=== PATIENT | male | born 1990 | race Caucasian/White ===

== ENCOUNTER 2018-09-24 16:05 | Outpatient (REF) | payer BC, SELFPAY ==
[2018-09-24 19:17] LABS: Abs Immature Grans 0.01 k/cumm (0.0-0.09); Absolute Basophil Count 0.03 k/cumm (0.0-0.2); Absolute Eosinophil Count 0.01 k/cumm (0.0-0.7); Absolute Lymphocyte Count 1.76 k/cumm (1.2-3.4); Absolute Monocyte Count 0.55 k/cumm (0.11-0.7); Basophils % 0.4; Eosinophils % 0.1; HGB 15.4 g/dL (13.5-17.5); Immature Grans % 0.1; Lymphocytes % 23.9; Mean Corp. HGB Concentration 34.2 g/dL (32.0-36.0); Mean Corpuscular Hemoglobin 30.1 pg (27.0-33.0); Mean Corpuscular Volume 87.9 fL (80-95); Mean Platelet Volume 9.8 fL (8.0-11.0); Monocytes % 7.5; Platelet Count 294 x1000/uL (130-400); RBC 5.12 m/cumm (4.50-6.00); RBC Distribution Width 12.6 % (11.8-14.1); White Blood Cell Count 7.36 k/cumm (4.4-10.8)
[2018-09-24 20:01] LABS: ALT 31 U/L (12-78); AST 20 U/L (15-37); Albumin 4.2 g/dL (3.4-5.0); Alkaline Phosphatase 74 U/L (46-116); Anion Gap 7.9 mmol/L (3-11); BUN 12 mg/dL (7-18); Bilirubin, Total 0.6 mg/dL (0.2-1.0); CO2 29.1 mmol/L (21.0-32.0); CREATININE 0.71 mg/dL (0.70-1.30); Calcium 9.6 mg/dL (8.5-10.1); Chloride 103 mmol/L (98-107); Glucose 116 mg/dL (70-100); HDL Cholesterol 68 mg/dL (40-60); LDL CHOLESTEROL 142 mg/dL (<100); Sodium 140 mmol/L (136-145); TSH 1.09 uIU/mL (0.358-3.74); Total Protein 7.8 g/dL (6.4-8.2)
[2018-09-24 20:06] LABS: ESR 10 MM/HR (0-15)
== END 2018-09-24 16:25 ==
LOC: NCHCN 16:05
PROVIDERS: PCP Nurse Practitioner Family; Visit Provider Nurse Practitioner Family
DX: E10.3513 Type 1 diabetes mellitus with proliferative diabetic retinopathy with macular edema, bilateral (principal); Z01.818 Encounter for other preprocedural examination
CPT/HCPCS: 80053; 83721; 85652; 83718; 84443; 85025

== ENCOUNTER 2019-07-19 12:41 | Outpatient (REF) | payer BC, SELFPAY ==
[2019-07-22 09:37] LABS: 2-Hydroxy Ethyl Flurazepam Not Detected ng/mL (Cutoff: 10); 6-monoacetylmorphine Not Detected ng/mL (Cutoff: 25); Alpha-Hydroxy Midazolam Not Detected ng/mL (Cutoff: 10); Alpha-Hydroxy Triazolam Not Detected ng/mL (Cutoff: 10); Alpha-Hydroxyalprazolam Not Detected ng/mL (Cutoff: 10); Alpha-OH-alprazolam Glucuronid Not Detected ng/mL (Cutoff: 50); Alprazolam Not Detected ng/mL (Cutoff: 10); Amphetamines Negative ng/mL (Cutoff: 500); Barbiturates Negative ng/mL (Cutoff: 200); Buprenorphine Not Detected ng/mL (Cutoff: 5); Chlordiazepoxide Not Detected ng/mL (Cutoff: 10); Clobazam Not Detected ng/mL (Cutoff: 10); Clonazepam Not Detected ng/mL (Cutoff: 10); Cocaine Negative ng/mL (Cutoff: 150); Codeine Not Detected ng/mL (Cutoff: 25); Comment Normal; Creatinine, U 40.2 mg/dL; Diazepam Not Detected ng/mL (Cutoff: 10); Dihydrocodeine Not Detected ng/mL (Cutoff: 25); EDDP Not Detected ng/mL (Cutoff: 25); Fentanyl Not Detected ng/mL (Cutoff: 2); Flurazepam Not Detected ng/mL (Cutoff: 10); Hydrocodone Not Detected ng/mL (Cutoff: 25); Hydromorphone Not Detected ng/mL (Cutoff: 25); Hydromorphone-3-beta-glucuroni Not Detected ng/mL (Cutoff: 100); Lorazepam Not Detected ng/mL (Cutoff: 10); Lorazepam Glucuronide Not Detected ng/mL (Cutoff: 50); Meperidine Not Detected ng/mL (Cutoff: 25); Methadone Not Detected ng/mL (Cutoff: 25); Midazolam Not Detected ng/mL (Cutoff: 10); Morphine Not Detected ng/mL (Cutoff: 25); N-Desmethylclobazam Not Detected ng/mL (Cutoff: 200); N-desmethyltapentadol Not Detected ng/mL (Cutoff: 50); Naloxone Not Detected ng/mL (Cutoff: 25); Norbuprenorphine Not Detected ng/mL (Cutoff: 5); Norfentanyl Not Detected ng/mL (Cutoff: 2); Norhydrocodone Not Detected ng/mL (Cutoff: 25); Normeperidine Not Detected ng/mL (Cutoff: 25); Noroxycodone Not Detected ng/mL (Cutoff: 25); Noroxymorphone Not Detected ng/mL (Cutoff: 25); O-desmethyltramadol Not Detected ng/mL (Cutoff: 25); Oxazepam Glucuronide Not Detected ng/mL (Cutoff: 50); Phencyclidine Negative ng/mL (Cutoff: 25); Prazepam Not Detected ng/mL (Cutoff: 10); Propoxyphene Not Detected ng/mL (Cutoff: 25); Specific Gravity 1.006; Tapentadol Not Detected ng/mL (Cutoff: 25); Temazepam Not Detected ng/mL (Cutoff: 10); Temazepam Glucuronide Not Detected ng/mL (Cutoff: 50); Tetrahydrocannabinol Presumptive Positive ng/mL (Cutoff: 50); Tramadol Not Detected ng/mL (Cutoff: 25); Triazolam Not Detected ng/mL (Cutoff: 10); Zolpidem Phenyl-4-Carboxy acid Not Detected ng/mL (Cutoff: 10); pH 7.6
[2019-07-22 12:03] LABS: Carboxy-THC Interpretation Positive.; Delta-9 CarboxyThc by LC-MS/MS 101 ng/mL (Cutoff:<3)
== END 2019-07-19 13:01 ==
LOC: LBN 12:41
PROVIDERS: PCP Nurse Practitioner Family; Visit Provider Nurse Practitioner Family
DX: Z79.899 Other long term (current) drug therapy (principal)
CPT/HCPCS: 80307; 80347; 80349; 80364

== ENCOUNTER 2020-10-09 15:08 | Outpatient (REF) | payer MEDICAID, SELFPAY ==
[2020-10-09 15:52] LABS: Hemoglobin A1C 8.2 % (<5.7)
[2020-10-09 16:10] LABS: COMMENT (LAB VIEW ONLY) 63.75 mg/dL; Microalb ug/mg Crea 16.3 ug/mg Cr
== END 2020-10-09 15:09 | disposition home or self-care (01) ==
LOC: NCHCN 15:08
PROVIDERS: PCP Nurse Practitioner Family; Visit Provider Physician Assistant
DX: E10.3293 Type 1 diabetes mellitus with mild nonproliferative diabetic retinopathy without macular edema, bilateral (principal)
CPT/HCPCS: 80053; 80061; 82043; 82570; 83036

== ENCOUNTER 2020-10-10 13:29 | Outpatient (REF) | payer MEDICAID, SELFPAY ==
[2020-10-10 14:30] LABS: ALT 33 U/L (16-63); AST 20 U/L (15-37); Albumin 4.4 g/dL (3.4-5.0); Alkaline Phosphatase 72 U/L (46-116); Anion Gap 7.6 mmol/L (3-11); BUN 13 mg/dL (7-18); Bilirubin, Total 0.4 mg/dL (0.2-1.0); CO2 30.4 mmol/L (21.0-32.0); CREATININE 0.8 mg/dL (0.70-1.30); Calcium 9.5 mg/dL (8.5-10.1); Calculated LDL 119 mg/dL (<100); Chloride 104 mmol/L (98-107); Cholesterol 198 mg/dL (<200); Glucose 52 mg/dL (74-106); HDL Cholesterol 55 mg/dL (40-60); Potassium 4.4 mmol/L (3.5-5.1); Sodium 142 mmol/L (136-145); Triglyceride 122 mg/dL (<150)
== END 2020-10-10 13:30 | disposition home or self-care (01) ==
LOC: NCHCN 13:29
PROVIDERS: PCP Nurse Practitioner Family; Visit Provider Physician Assistant
DX: E10.3293 Type 1 diabetes mellitus with mild nonproliferative diabetic retinopathy without macular edema, bilateral (principal)
CPT/HCPCS: 80053; 80061

== ENCOUNTER 2021-01-31 09:24 | Outpatient (REF) | payer MEDICAID, SELFPAY ==
[2021-02-04 13:51] LABS: 2-Hydroxy Ethyl Flurazepam Not Detected ng/mL (Cutoff: 10); 3,4-methylenedioxyamphetamine Not Detected ng/mL (Cutoff: 100); 3,4-methylenedioxyethylampheta Not Detected ng/mL (Cutoff: 100); 3,4-methylenedioxymethamphetam Not Detected ng/mL (Cutoff: 100); 6-monoacetylmorphine Not Detected ng/mL (Cutoff: 25); Alpha-Hydroxy Midazolam Not Detected ng/mL (Cutoff: 10); Alpha-Hydroxy Triazolam Not Detected ng/mL (Cutoff: 10); Alpha-Hydroxyalprazolam Not Detected ng/mL (Cutoff: 10); Alpha-OH-alprazolam Glucuronid Not Detected ng/mL (Cutoff: 50); Alprazolam Not Detected ng/mL (Cutoff: 10); Amphetamine Not Detected ng/mL (Cutoff: 100); Barbiturates Negative ng/mL (Cutoff: 200); Buprenorphine Not Detected ng/mL (Cutoff: 5); Chlordiazepoxide Not Detected ng/mL (Cutoff: 10); Clobazam Not Detected ng/mL (Cutoff: 10); Clonazepam Not Detected ng/mL (Cutoff: 10); Cocaine Negative ng/mL (Cutoff: 150); Codeine Not Detected ng/mL (Cutoff: 25); Comment Normal; Creatinine, U 105.2 mg/dL; Diazepam Not Detected ng/mL (Cutoff: 10); Dihydrocodeine Not Detected ng/mL (Cutoff: 25); EDDP Not Detected ng/mL (Cutoff: 25); Ephedrine Not Detected ng/mL (Cutoff: 100); Fentanyl Not Detected ng/mL (Cutoff: 2); Flurazepam Not Detected ng/mL (Cutoff: 10); Hydrocodone Not Detected ng/mL (Cutoff: 25); Hydromorphone Not Detected ng/mL (Cutoff: 25); Hydromorphone-3-beta-glucuroni Not Detected ng/mL (Cutoff: 100); Lorazepam Not Detected ng/mL (Cutoff: 10); Lorazepam Glucuronide Not Detected ng/mL (Cutoff: 50); Meperidine Not Detected ng/mL (Cutoff: 25); Methadone Not Detected ng/mL (Cutoff: 25); Methamphetamine Not Detected ng/mL (Cutoff:100); Methylphenidate Not Detected ng/mL (Cutoff: 20); Midazolam Not Detected ng/mL (Cutoff: 10); Morphine Not Detected ng/mL (Cutoff: 25); N-Desmethylclobazam Not Detected ng/mL (Cutoff: 200); N-desmethyltapentadol Not Detected ng/mL (Cutoff: 50); Naloxone Not Detected ng/mL (Cutoff: 25); Norbuprenorphine Not Detected ng/mL (Cutoff: 5); Norfentanyl Not Detected ng/mL (Cutoff: 2); Norhydrocodone Not Detected ng/mL (Cutoff: 25); Normeperidine Not Detected ng/mL (Cutoff: 25); Noroxycodone Not Detected ng/mL (Cutoff: 25); Noroxymorphone Not Detected ng/mL (Cutoff: 25); O-desmethyltramadol Not Detected ng/mL (Cutoff: 25); Oxazepam Glucuronide Not Detected ng/mL (Cutoff: 50); Phencyclidine (PCP) Not Detected ng/mL (Cutoff: 20); Phentermine Not Detected ng/mL (Cutoff: 100); Prazepam Not Detected ng/mL (Cutoff: 10); Propoxyphene Not Detected ng/mL (Cutoff: 25); Pseudoephedrine Not Detected ng/mL (Cutoff: 100); Ritalinic Acid Not Detected ng/mL (Cutoff: 100); Specific Gravity 1.011; Tapentadol Not Detected ng/mL (Cutoff: 25); Temazepam Not Detected ng/mL (Cutoff: 10); Temazepam Glucuronide Not Detected ng/mL (Cutoff: 50); Tetrahydrocannabinol Presumptive Positive ng/mL (Cutoff: 50); Tramadol Not Detected ng/mL (Cutoff: 25); Triazolam Not Detected ng/mL (Cutoff: 10); Zolpidem Phenyl-4-Carboxy acid Not Detected ng/mL (Cutoff: 10); pH 7.8
[2021-02-04 15:30] LABS: Carboxy-THC Interpretation Positive.; Delta-9 CarboxyThc by LC-MS/MS 181 ng/mL (Cutoff:<3)
== END 2021-01-31 09:25 | disposition home or self-care (01) ==
LOC: LBN 09:24
PROVIDERS: PCP Nurse Practitioner Family; Visit Provider Nurse Practitioner Family
DX: E10.42 Type 1 diabetes mellitus with diabetic polyneuropathy (principal); Z79.899 Other long term (current) drug therapy
CPT/HCPCS: 80307; 80347; 80349; 80364

== ENCOUNTER 2021-04-09 13:45 | Outpatient (REF) | payer MEDICAID, SELFPAY ==
[2021-04-09 14:20] LABS: Hemoglobin A1C 8.6 % (<5.7)
[2021-04-09 14:32] LABS: TSH 1.07 uIU/mL (0.36-3.74)
[2021-04-09 20:32] LABS: Calculated LDL 65 mg/dL (<100); Cholesterol 124 mg/dL (<200); HDL Cholesterol 49 mg/dL (40-60); Triglyceride 51 mg/dL (<150)
== END 2021-04-09 13:46 | disposition home or self-care (01) ==
LOC: NCHCN 13:45
PROVIDERS: PCP Nurse Practitioner Family; Visit Provider Physician Assistant
DX: E10.8 Type 1 diabetes mellitus with unspecified complications (principal); K31.84 Gastroparesis
CPT/HCPCS: 80061; 83036; 84439; 84443

== ENCOUNTER 2021-07-24 15:52 | Outpatient (REF) | payer MEDICAID, SELFPAY ==
[2021-07-24 19:25] LABS: COMMENT (LAB VIEW ONLY) 175.16 mg/dL; Microalb ug/mg Crea 48.1 ug/mg Cr
== END 2021-07-24 15:53 | disposition home or self-care (01) ==
LOC: NCHCN 15:52
PROVIDERS: PCP Nurse Practitioner Family; Visit Provider Physician Assistant
DX: E10.8 Type 1 diabetes mellitus with unspecified complications (principal)
CPT/HCPCS: 82043; 82570

== ENCOUNTER 2022-06-03 10:14 | Outpatient (REF) | payer MEDICAID, SELFPAY ==
[2022-06-03 15:44] LABS: Hemoglobin A1C 8.8 % (<5.7)
[2022-06-03 15:49] LABS: ALT 62 U/L (16-63); AST 36 U/L (15-37); Albumin 4.4 g/dL (3.4-5.0); Alkaline Phosphatase 70 U/L (46-116); Anion Gap 7.9 mmol/L (3-11); BUN 16 mg/dL (7-18); Bilirubin, Total 0.5 mg/dL (0.2-1.0); CO2 29.1 mmol/L (21.0-32.0); CREATININE 0.7 mg/dL (0.70-1.30); Calcium 9.3 mg/dL (8.5-10.1); Calculated LDL 138 mg/dL (<100); Chloride 103 mmol/L (98-107); Cholesterol 208 mg/dL (<200); Estimated GFR 127.12 (mL/min/1.73m2); Glucose 76 mg/dL (74-106); HDL Cholesterol 58 mg/dL (40-60); Potassium 4.3 mmol/L (3.5-5.1); Sodium 140 mmol/L (136-145); Total Protein 8.4 g/dL (6.4-8.2); Triglyceride 60 mg/dL (<150)
== END 2022-06-03 10:15 | disposition home or self-care (01) ==
LOC: NCHCN 10:14
PROVIDERS: PCP Nurse Practitioner Family; Visit Provider Physician Assistant
DX: E10.8 Type 1 diabetes mellitus with unspecified complications (principal)
CPT/HCPCS: 80053; 80061; 83036

== ENCOUNTER 2023-04-15 13:38 | Emergency (ER) | payer MEDICAID, SELFPAY ==
[2023-04-15] VITALS (12 sets, daily range): BP systolic 117–140; BP diastolic 74–90; PULSE 60–79; RESP 10–18; TEMP 36.8; O2SAT 99–100
--- NOTE | 2023-04-15 13:52 | ED.GENADUL_ITS ---
Discharge Plan Disposition Patient Disposition: Home Discharge Details Clinical Impression: Colitis Primary Care Provider: Laney Aragon ED Provider: Lorenzo Cleveland Home Meds and New Rx's Prescriptions: New amoxicillin-pot clavulanate 875-125 mg tablet 1 tab PO BID 7 Days Qty: 14 0RF famotidine 40 mg tablet 40 mg PO DAILY Qty: 30 0RF Continued Toujeo Max U-300 SoloStar 300 unit/mL (3 mL) insulin pen 28 unit SC QHS Patient Comments: no longer taking 04/15/23 atorvastatin 40 mg Tablet 40 mg PO QPM (DME) pen needle, diabetic [BD Ultra-Fine Sarah Pen Needle] 1 EACH needle 1 ea Miscellaneous as directed Qty: 100 Rx Instructions: dispense BD short pen needles insulin aspart U-100 [Novolog FlexPen U-100 Insulin] 100 UNIT/1 ML insulin pen 1 dose SQ .4X/DAY PRNQty: 1 0RF Rx Instructions: use for correction of elevated BG as directed Discharge Instructions Additional Instructions: You are seen in the emergency department for your abdominal pain. Your CAT scan shows that you have signs of inflammation in your stomach which is likely an infection for which you are being treated with antibiotics. If you cannot eat or drink or develop any nausea or vomiting please return to the emergency department. Discharge Data Discharge Date/Time-TO BE ENTERED AT DEPARTURE: 04/15/23 15:51 Medical Decision Making This is an overall very well-appearing normothermic and not tachycardic 32-year- old male with history of diabetes and lower abdominal pain and black stools concerning for the possibility of GI bleed. Patient is not an alcoholic so my suspicion for upper GI bleed is low. He is not anticoagulated. He has not been vomiting and he has no history of surgeries to suggest increased risk for SBO. He does have right lower quadrant tenderness which raises possibility of appendicitis. Based on his age my suspicion is low for diverticulitis. No dysuria no frequency to suggest UTI. No flank pain to suggest ureterolithiasis. No history of trauma to suggest intra-abdominal injury however the patient has been rock climbing so certainly is possible that he could have developed a musculoskeletal strain, though he has no physical signs of trauma. No pain out of proportion to suggest necrotizing soft tissue infection. Will reassess following labs including comprehensive metabolic panel and type and screen CT scan. No hypotension nor vascular risk factors beyond diabetes to suggest ruptured AAA. We will treat with 80 mg of pantoprazole and provide a 500 cc crystalloid bolus. 3:03 PM CBC with no anemia thrombocytopenia nor leukocytosis. Comprehensive metabolic panel with no SONIYA. Mild hyperglycemia but no anion gap and normal bicarbonate. Not consistent with DKA. No LFT abnormalities. Patient has a Glascow Blatchford bleeding score of 0 making him appropriate for discharge with outpatient follow-up assuming his CT does not show any acute abnormalities. 3:[address] scan concerning for colitis for which patient will receive amoxicillin clavulanic acid. Will discharge with outpatient follow-up. Patient felt markedly improved following pantoprazole. I wrote him for a short course of famotidine and advised outpatient follow-up. I also discussed return to the ED if he developed any worsening abdominal pain recurrent black or bloody stools or had any other concerns. 04/16 I called the patient at home to inquire as to how he was feeling. He reported that he had been tolerating liquids well and had had no recurrent episodes of black stools. He reported that he was going to collect his antibiotics this morning. He reported no fevers. I advised that he should continue to monitor his symptoms at home and return to the emergency department if he had any concerns. Chronic conditions affecting the care of the patient: Type 1 diabetic History obtained from an outside historian: N/A External record review: [facility] [place] Medications: Pantoprazole & amoxicillin clavulanic acid Social determinants of health affecting disposition: N/A Management discussed with: N/A Treatment/interventions considered: N/A Response to therapies provided: N/A HPI General Date/Time Provider Initiated Documentation: 04/15/23 13:52 . HPI Narrative: This is a 32-year-old insulin-dependent diabetic with lower abdominal pain and nausea. He describes his pain as crampy. His pain does not radiate. He denies any exacerbators alleviators. He reports that he had black stools this morning. He has a history of gastroparesis. 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 He has not had any fevers dysuria chest pain shortness of breath dysuria no frequency. He is not anticoagulated. He has never had any surgeries to his abdomen. He denies routine tobacco and ethanol. He does smoke marijuana. He has not had any blood in his stools. He has not been vomiting. He has had no headaches. Related Data Home Medications Medication Instructions Recorded Confirmed pen needle, diabetic 32 gauge x #100 ea 11/29/13 07/19/1930 (BD Ultra-Fine Sarah Pen Needle) insulin aspart U-100 100 unit/mL 1 dose SQ .4X/DAY PRN ##1 07/02/14 04/15/23 (3 mL) subcutaneous pen (Novolog FlexPen U-100 Insulin aspart) insulin glargine U-300 conc 300 28 unit subcut QHS 07/19/19 07/19/19 unit/mL (3 mL) subcutaneous pen (Toujeo Max U-300 SoloStar) atorvastatin 40 mg tablet 40 mg PO QPM 01/31/21 04/15/23 amoxicillin 875 mg-potassium 1 tab PO BID 7 days #14 tabs 04/15/23 clavulanate 125 mg tablet famotidine 40 mg tablet 40 mg PO DAILY #30 tabs 04/15/23 Previous Rx's Medication Instructions Recorded insulin aspart U-100 100 unit/mL 1 dose SQ .4X/DAY PRN ##1 07/02/14 (3 mL) subcutaneous pen (Novolog FlexPen U-100 Insulin aspart) amoxicillin 875 mg-potassium 1 tab PO BID 7 days #14 tabs 04/15/23 clavulanate 125 mg tablet famotidine 40 mg tablet 40 mg PO DAILY #30 tabs 04/15/23 Allergies Allergy/AdvReac Type Severity Reaction Status Date / Time No Known Allergies Allergy Unverified 04/15/23 13:47 General Stated Complaint: Abd Prob LAINEY: 3 PFSH All Active Problems (Updated 04/15/23 @ 15:43 by Lorenzo Cleveland MD) Colitis (Acute) Tendinitis of right wrist (Acute 11/23/12) Routine medical exam (Acute 04/01/13) Palpitations (Acute 11/23/12) Diabetes mellitus type 1 (Acute 11/23/12) DKA, type 1 (Acute 07/01/14) a. bicarb 13.4 b. clinically dehydrated c. obvious odor of ketones d. Diabetes diagnosed as an e. Multiple previous admissions for DKA, none in several years Medical History (Updated 04/15/23 @ 15:43 by Lorenzo Cleveland MD) Gastroparesis Neuropathy Retinal hemorrhage Situational depression Type 1 diabetes mellitus Vitreous hemorrhage, right eye Wrist tendonitis Surgical History (Updated 01/31/21 @ 08:51 by Danuta Connolly) H/O eye surgery x2 Social History (Updated 08/09/18 @ 09:03 by Amy Alan RN) Smoking/Tobacco Use Status: Former Tobacco Use Smoking risk assessment performed?: Yes Alcohol Intake: former Drug use: Occasionally Substance use type: marijuana Household members: family Housing: house What type of physical activity do you participate in: additional Details: PT every monrning Do you feel safe in your relationship?: Yes Exam Narrative Exam Narrative: General: Well-appearing in no acute distress speaking in complete sentences. Head: Normocephalic, atraumatic. Eye: Pupils equal, round reactive to light. Extraocular eye movements intact. No conjunctival injection. No scleral icterus. Ear, nose, mouth, throat: Grossly normal inspection. Normal voice, handling secretions normally. Neck: Trachea midline. Cardiovascular: Well-perfused distal extremities. Regular rate and rhythm Respiratory: Nonlabored respiration. Clear lungs Gastrointestinal: Nondistended abdomen. Soft abdomen with diffuse lower quadrant tenderness bilaterally. No rebound. No guarding. No rash to abdomen.No melena on rectal exam. Musculoskeletal: No edema. Moving all 4 extremities spontaneously. Skin: Normal for age and race, grossly normal temperature and turgor. No acute rash. Neurologic: Alert and appropriate, no apparent acute deficits. Psychiatric: Mood and manner are appropriate. Grooming and personal hygiene are appropriate. Course Vital Signs Vital signs: Vital Signs Temperature 36.8 C 04/15/23 13:45 Pulse 73 04/15/23 13:45 Respiratory Rate 18 04/15/23 13:45 Blood Pressure 123/90 04/15/23 13:45 Pulse Oximetry 99 04/15/23 13:45 Temperature 36.8 C 04/15/23 13:45 Temperature Source Skin 04/15/23 13:45 Pulse 73 04/15/23 13:45 Respiratory Rate 18 04/15/23 13:45 Blood Pressure 123/90 04/15/23 13:45 Pulse Oximetry 99 04/15/23 13:45 Oxygen Delivery Method Room Air 04/15/23 13:45 Oxygen Flow Rate 0 04/15/23 13:45 Pain Level 7 04/15/23 13:45
--- NOTE | 2023-04-15 14:00 | DI.CT_ITS ---
Exam(s) CT ABDOMEN PELVIS W EXAM: CT ABDOMEN PELVIS W CLINICAL HISTORY: Lower abdominal pain black stools. TECHNIQUE: Imaging Protocol: Axial computed tomography images with coronal and sagittal reformatted images were created and reviewed CONTRAST MATERIAL: Intravenous: Omnipaque 350 Contrast volume:100 ml Oral: / no COMPARISON: CT HEAD FACIALS WO from 06/11/2010 FINDINGS: ABDOMEN: Lung Bases: Normal where visualized. Liver: Normal density. No measurable mass. Gallbladder and biliary tract: No radiodense calculus or dilation. Pancreas: Normal density, no abnormal calcifications or inflammatory process. Spleen: Normal. Kidneys: Normal size, contour and axis. No radiodense stones or obstructive uropathy. No suspicious m asses seen. Adrenal glands: No masses seen. Abdominal Aorta: Abdominal portion non-dilated. Soft tissues: Unremarkable. PELVIS: Bladder: No gross wall thickening. No calculi.No focal mass. Bowel: No obstruction. Colon nearly empty of stool. Thickening of wall and mild surrounding edema of descending and sigmoid, consistent with colitis. Appendix normal. Peritoneal cavity: No ascites, collection or mesenteric inflammatory response. Bones: Unremarkable for age. Reproductive organs: Within normal limits. Lymph nodes: Unremarkable. Impression: Wall thickening of descending and sigmoid colon consistent with colitis. These called to Gloria Louis of the emergency department. RADIATION DOSE DELIVERED: 753.2mGy.cm Total DLP DATA REPOSITORY: All CT scans at this facility are submitted to the National Radiology Data Registry (NRDR) Dose Index Registry (DIR) with the [employer] (ACR). RADIATION OPTIMIZATION: All CT scans at this facility use at least one of these dose optimization te chniques: automated exposure control; mA and/or kV adjustment per patient size (includes targeted exa ms where dose is matched to clinical indication); or iterative reconstruction.
[2023-04-15] MEDS: Normal Saline 500 ML IV (14:13)
[2023-04-15 14:16] LABS: Abs Immature Grans 0.01 10^3/uL (0.0-0.06); Absolute Basophil Count 0.04 10^3/uL (0.0-0.2); Absolute Eosinophil Count 0.06 10^3/uL (0.0-0.7); Absolute Lymphocyte Count 2.06 10^3/uL (1.2-3.4); Absolute Monocyte Count 0.66 10^3/uL (0.1-0.8); Absolute Neutrophil Count 3.35 10^3/uL (1.2-6.7); Basophils % 0.6; HCT 45.4 % (40.0-50.0); HGB 15.8 g/dL (13.5-17.5); Immature Grans % 0.2; Lymphocytes % 33.3; MCH 29.8 pg (27.0-33.0); MCHC 34.8 % (32.0-36.0); MCV 86 fL (80-95); MPV 9.4 fL (8.0-11.0); Monocytes % 10.7; Neutrophils % 54.2; Platelet Count 242 10^3/uL (130-400); RDW-SD 37.9 fL; WBC 6.18 10^3/uL (4.4-10.8)
[2023-04-15 14:32] LABS: ALT 45 U/L (16-63); AST 27 U/L (15-37); Albumin 4.4 g/dL (3.4-5.0); Alkaline Phosphatase 78 U/L (46-116); Anion Gap 8.5 mmol/L (3-11); BUN 12 mg/dL (7-18); Bilirubin, Total 0.6 mg/dL (0.2-1.0); CO2 30.5 mmol/L (21.0-32.0); CREATININE 0.7 mg/dL (0.70-1.30); Calcium 9.3 mg/dL (8.5-10.1); Chloride 104 mmol/L (98-107); Estimated GFR 127.12 (mL/min/1.73m2); Glucose 131 mg/dL (74-106); Potassium 4.2 mmol/L (3.5-5.1); Sodium 143 mmol/L (136-145); Total Protein 8.4 g/dL (6.4-8.2)
[2023-04-15] MEDS: Omnipaque 350 MG/ML 100 ML BTL IJ (15:14)
[2023-04-15] MEDS: Normal Saline - Diluent 50 ML VIAL IJ (15:14)
[2023-04-15] MEDS: Normal Saline Flush 10 ML SYR IVP (15:15)
[2023-04-15] MEDS: Pantoprazole 40 MG VIAL 80 MG IVP (15:27)
[2023-04-15] MEDS: Amoxicillin 875/Clav. 125 TAB PO (15:48)
== END 2023-04-15 15:51 | disposition home or self-care (01) ==
PROVIDERS: Emergency Provider Emergency Medicine; PCP Nurse Practitioner Family
DX: K52.9 Noninfective gastroenteritis and colitis, unspecified (principal); R10.31 Right lower quadrant pain; E10.9 Type 1 diabetes mellitus without complications; Z79.4 Long term (current) use of insulin; Z87.891 Personal history of nicotine dependence
CPT/HCPCS: 36415; 80053; 86850; 86900; 86901; 96361; 96374; 99285; 74177; 85025; 99284; J3490

== ENCOUNTER 2023-06-05 07:51 | Emergency (ER) | payer MEDICAID, SELFPAY ==
[2023-06-05 07:54] VITALS: BP 154/71; PULSE 97; RESP 16; TEMP 36.4; O2SAT 97
--- NOTE | 2023-06-05 08:12 | W.ED.GENAD ---
Discharge Plan Disposition Patient Disposition: Home Discharge Details Clinical Impression: Left ankle sprain Primary Care Provider: Laney Aragon ED Provider: Cash Holland Home Meds and New Rx's Prescriptions: Continued atorvastatin 40 mg Tablet 40 mg PO QPM (DME) pen needle, diabetic [BD Ultra-Fine Sarah Pen Needle] 1 EACH needle 1 ea Miscellaneous as directed Qty: 100 Rx Instructions: dispense BD short pen needles insulin aspart U-100 [Novolog FlexPen U-100 Insulin] 100 UNIT/1 ML insulin pen 1 dose SQ .4X/DAY PRNQty: 1 0RF Rx Instructions: use for correction of elevated BG as directed famotidine 40 mg tablet 40 mg PO DAILY Qty: 30 0RF lisinopril 2.5 mg tablet 2.5 mg PO QHS Patient Comments: TAKE ONE TABLET BY MOUTH EVERY DAY Discontinued Toujeo Max U-300 SoloStar 300 unit/mL (3 mL) insulin pen 28 unit SC QHS Patient Comments: no longer taking 04/15/23 Discharge Instructions Instructions: Ankle Sprain (ED), R.I.C.E. Treatment (ED) Additional Instructions: Please wear the walking boot for stability and use crutches for the next 2 to 3 days. After that you may slowly perform weightbearing activities as tolerated. Continue to apply ice, keep the extremity elevated, and use [id number] pain medication as needed for discomfort. Referrals: [facility] [Provider Group] (Please call the office tomorrow afternoon for arrangement of follow-up) Medical Decision Making Patient presenting to the emergency department for chief complaint of left ankle injury. He reports 3 days ago he was climbing and jumped off into a landing pad and had an inversion injury to his left ankle. He states fall was only 1 foot, denies any other injury or trauma, denies all other complaints. Patient has past medical history of type 1 diabetes. Physical exam shows diffuse swelling with significant tenderness to palpation of the ankle with more noted to the lateral aspects of the ankle. We will plan on performing radiological imaging for evaluation of fracture versus sprain. Review of radiological imaging shows no acute fracture. Will place patient in a walking boot and recommend crutch use over the next 2 to 3 days and then weightbearing as tolerated. Otherwise [id number] medications for pain. Patient placed upon follow-up list to Ortho for reassessment. After discussion of diagnosis and plan of care patient has no further needs, questions, or concerns and states clear understanding to return to the emergency department for any worsening symptoms. This documentation was generated using [employer] dictation system, please disregard any oddities of phrase or misspellings. Imaging Data Radiologic Study: Imaging: X-Ray Radiologist's impression: Exam(s) XR ANKLE LT COMPLETE EXAM: XR ANKLE LT COMPLETE CLINICAL HISTORY: lateral ankle injury TECHNIQUE: 2D digital imaging was performed. Three views. COMPARISON: CR RIGHT ANKLE COMPLETE from 05/22/2013 FINDINGS: BONES: No acute fracture is present. No bony destructive lesion is seen. JOINTS:The ankle mortise is normally aligned. SOFT TISSUE: Marked swelling over lateral malleolus. Vascular calcifications. No gas collection or foreign body. IMPRESSION: Unrem soft tissue swelling. HPI General Mode of arrival: wheelchair. Date/Time Provider Initiated Documentation: 06/05/23 08:02. Limitations to Documentation: no limitations. Information obtained by: patient, family and RN notes reviewed. History of Present Illness 33 year old M presents to the emergency department with the chief complaint of Left ankle injury, described as moderate, Quality is described as sharp, and is localized to the left and upper extremity. Patient reports no radiation. Patient started experiencing this day(s) (3) and it has been constant. No relieving factors improve symptom(s), Movement worsens symptoms . Patient notes no other symptoms.. Patient did receive the following treatments prior to arrival, none Related Data Home Medications Medication Instructions Recorded Confirmed pen needle, diabetic 32 gauge x #100 ea 11/29/13 07/19/19 (BD Ultra-Fine Sarah Pen Needle) insulin aspart U-100 100 unit/mL 1 dose SQ .4X/DAY PRN ##1 07/02/14 06/05/23 (3 mL) subcutaneous pen (Novolog FlexPen U-100 Insulin aspart) atorvastatin 40 mg tablet 40 mg PO QPM 01/31/21 06/05/23 famotidine 40 mg tablet 40 mg PO DAILY #30 tabs 04/15/23 06/05/23 lisinopril 2.5 mg tablet 2.5 mg PO QHS 06/05/23 06/05/23 Previous Rx's Medication Instructions Recorded insulin aspart U-100 100 unit/mL 1 dose SQ .4X/DAY PRN ##1 07/02/14 (3 mL) subcutaneous pen (Novolog FlexPen U-100 Insulin aspart) famotidine 40 mg tablet 40 mg PO DAILY #30 tabs 04/15/23 Allergies Allergy/AdvReac Type Severity Reaction Status Date / Time No Known Allergies Allergy Unverified 06/05/23 07:58 General Stated Complaint: Orthopedic LAINEY: 4 Review of Systems Narrative: 6 systems reviewed and unremarkable except what is marked below. Musculoskeletal Musculoskeletal: Reports as per HPI, Reports arthralgias, Reports joint swelling, Reports limited range of motion, Denies numbness and Denies tingling Integumentary/Breasts Skin/Breast: Denies unusual bruising Neurologic Neurologic: Denies numbness and Denies tingling PFSH All Active Problems (Updated 06/05/23 @ 08:32 by Cash Holland NP) Left ankle sprain (Acute) Tendinitis of right wrist (Acute 11/23/12) Routine medical exam (Acute 04/01/13) Palpitations (Acute 11/23/12) Diabetes mellitus type 1 (Acute 11/23/12) DKA, type 1 (Acute 07/01/14) a. bicarb 13.4 b. clinically dehydrated c. obvious odor of ketones d. Diabetes diagnosed as an infant e. Multiple previous admissions for DKA, none in several years Medical History Gastroparesis Neuropathy Retinal hemorrhage Situational depression Type 1 diabetes mellitus Vitreous hemorrhage, right eye Wrist tendonitis Surgical History H/O eye surgery x2 Social History Smoking/Tobacco Use Status: Former Tobacco Use Smoking risk assessment performed?: Yes Alcohol Intake: former Drug use: Occasionally Substance use type: marijuana Household members: family Housing: house What type of physical activity do you participate in: additional Details: PT every monrning Do you feel safe in your relationship?: Yes Exam Const General: cooperative, no acute distress and not ill appearing Orientation: alert, awake and oriented x3 HENMT Mouth: moist mucous membranes Resp Effort & Inspection: normal respiratory effort, able to speak in complete sentences and no respiratory distress Cardio Rate: regular rate Rhythm: regular rhythm Pulses: dorsalis pedis present Neuro General: patient alert, patient awake, patient oriented x3, moves all extremities and no focal motor deficits Sensory Exam: no sensory deficits noted Extrem General: normal exam except as noted Left lower extremity: ankle Details: tenderness Location: of the lateral malleolus, of the medial malleolus and anterolaterally, swelling Details: diffusely and abnormal ROM Details: pain with active ROM, pain with passive ROM and with range as follows (Painful flexion and extension severe pain with any rotation and severely limited); no warmth, no abrasions, no lacerations and no ecchymosis Course Vital Signs Vital signs: Vital Signs Temperature 36.4 C L 06/05/23 07:54 Pulse 97 H 06/05/23 07:54 Respiratory Rate 16 06/05/23 07:54 Blood Pressure 154/71 H 06/05/23 07:54 Pulse Oximetry 97 06/05/23 07:54 Temperature 36.4 C L 06/05/23 07:54 Temperature Source Temporal Artery Scan 06/05/23 07:54 Pulse 97 H 06/05/23 07:54 Respiratory Rate 16 06/05/23 07:54 Respiratory Effort Normal, Non-Labored 06/05/23 08:00 Blood Pressure 154/71 H 06/05/23 07:54 Blood Pressure Position Sitting 06/05/23 07:54 Pulse Oximetry 97 06/05/23 07:54 Oxygen Delivery Method Room Air 06/05/23 07:54 Oxygen Flow Rate 0 06/05/23 07:54
--- NOTE | 2023-06-05 08:28 | DI.RAD_ITS ---
Exam(s) XR ANKLE LT COMPLETE EXAM: XR ANKLE LT COMPLETE CLINICAL HISTORY: lateral ankle injury TECHNIQUE: 2D digital imaging was performed. Three views. COMPARISON: CR RIGHT ANKLE COMPLETE from 05/22/2013 FINDINGS: BONES: No acute fracture is present. No bony destructive lesion is seen. JOINTS:The ankle mortise is normally aligned. SOFT TISSUE: Marked swelling over lateral malleolus. Vascular calcifications. No gas collection or foreign body. IMPRESSION: Unrem soft tissue swelling. DATA REPOSITORY: RADIATION DOSE DELIVERED:
== END 2023-06-05 09:12 | disposition home or self-care (01) ==
PROVIDERS: Emergency Provider Nurse Practitioner Family; PCP Nurse Practitioner Family
DX: S93.402A Sprain of unspecified ligament of left ankle, initial encounter (principal); R10.9 Unspecified abdominal pain; X50.1XXA Overexertion from prolonged static or awkward postures, initial encounter; Y93.31 Activity, mountain climbing, rock climbing and wall climbing; Y92.838 Other recreation area as the place of occurrence of the external cause; Y99.9 Unspecified external cause status
CPT/HCPCS: 99283; 73610

== ENCOUNTER 2024-02-10 15:34 | Outpatient (REF) | payer MEDICAID, SELFPAY ==
[2024-02-10 20:05] LABS: COMMENT (LAB VIEW ONLY) 97.93 mg/dL; Microalb ug/mg Crea 55.3 ug/mg Cr
[2024-02-10 20:06] LABS: HCT 41.4 % (40.0-50.0); HGB 14.2 g/dL (13.5-17.5); MCH 30.3 pg (27.0-33.0); MCHC 34.3 % (32.0-36.0); MCV 89 fL (80-95); MPV 10.2 fL (8.0-11.0); Platelet Count 248 10^3/uL (130-400); RBC 4.68 10^6/uL (4.36-5.78); RDW 12.1 % (11.8-14.1); RDW-SD 39.3 fL; WBC 6.56 10^3/uL (4.4-10.8)
[2024-02-10 20:18] LABS: ALT 33 U/L (16-63); AST 20 U/L (15-37); Albumin 4.2 g/dL (3.4-5.0); Alkaline Phosphatase 68 U/L (46-116); Anion Gap 6.8 mmol/L (3-11); BUN 18 mg/dL (7-18); Bilirubin, Total 0.7 mg/dL (0.2-1.0); CO2 31.2 mmol/L (21.0-32.0); CREATININE 0.7 mg/dL (0.70-1.30); Calcium 9.4 mg/dL (8.5-10.1); Calculated LDL 74 mg/dL (<100); Chloride 100 mmol/L (98-107); Cholesterol 142 mg/dL (<200); Estimated GFR 126.33 (mL/min/1.73m2); Glucose 291 mg/dL (74-106); HDL Cholesterol 59 mg/dL (40-60); Potassium 4.3 mmol/L (3.5-5.1); Sodium 138 mmol/L (136-145); Total Protein 7.6 g/dL (6.4-8.2); Triglyceride 45 mg/dL (<150)
[2024-02-10 20:30] LABS: Hemoglobin A1C 8.3 % (<5.7)
== END 2024-02-10 15:35 | disposition home or self-care (01) ==
LOC: NCHCN 15:34
PROVIDERS: PCP Nurse Practitioner Family; Visit Provider Physician Assistant
DX: E10.9 Type 1 diabetes mellitus without complications (principal)
CPT/HCPCS: 80053; 80061; 85027; 82043; 82570; 83036

== ENCOUNTER 2025-03-22 12:56 | Outpatient (REF) | payer MEDICAID, SELFPAY ==
[2025-03-22 17:31] LABS: ALT 30 U/L (16-63); AST 22 U/L (15-37); Albumin 4.4 g/dL (3.4-5.0); Alkaline Phosphatase 63 U/L (46-116); Anion Gap 4.4 mmol/L (3-11); BUN 13 mg/dL (7-18); Bilirubin, Total 0.5 mg/dL (0.2-1.0); CO2 33.6 mmol/L (21.0-32.0); Calcium 9.6 mg/dL (8.5-10.1); Calculated LDL 118 mg/dL (<100); Chloride 103 mmol/L (98-107); Cholesterol 184 mg/dL (<200); Estimated GFR 125.55 (mL/min/1.73m2); Glucose 205 mg/dL (74-106); HDL Cholesterol 52 mg/dL (>or=40); Potassium 4.7 mmol/L (3.5-5.1); Sodium 141 mmol/L (136-145); Total Protein 7.5 g/dL (6.4-8.2); Triglyceride 70 mg/dL (<150)
[2025-03-22 17:36] LABS: Hemoglobin A1C 7.7 % (<5.7)
[2025-03-22 18:29] LABS: COMMENT (LAB VIEW ONLY) 25.45 mg/dL; Microalb ug/mg Crea 27.9 ug/mg Cr
== END 2025-03-22 12:57 | disposition home or self-care (01) ==
LOC: NCHCN 12:56
PROVIDERS: Visit Provider Physician Assistant
DX: E10.9 Type 1 diabetes mellitus without complications (principal)
CPT/HCPCS: 80053; 80061; 82043; 82570; 83036